=== PATIENT | female | born 1940 | race Caucasian/White ===

== ENCOUNTER 2018-10-15 10:07 | Emergency (ER) | payer MEDICARE, OTHER ==
[~2018-10-15] VITALS: Ht 160 cm; Wt 73.5 kg
[~2018-10-15 10:07] MED LIST: ATIVAN1 MG PO; METOPROLOL SUCC50 MG PO; METOPROLOL TART50 MG PO; PRADAXA150 MG PO; TYLENOL # 31 EA PO; XARELTO20 MG PO; ZEGERID 40 MG1 EACH PO
--- OUTSIDE RECORDS SUMMARY | 2018-10-15 10:10 | XMS REPORT ---
Author Author [facility] Address Unknown Phone Unavailable Care Team Providers Care Associate Director Name Role Phone DEVYN LOPEZ Unavailable Unavailable Payers Payer Name Policy Type Policy Number Effective Date Expiration Date Problems This patient has no known problems. Allergies, Adverse Reactions, Alerts Allergy Name Allergy Type Status Severity Reaction(s) Onset Date Inactive Date Treating Clinician Comments oxytetracycline HCl DA Active MO 2017-07-04 00:00:00 Penicillins DA Active SV 2017-07-04 00:00:00 morphine DA Active SV 2017-07-04 00:00:00 oxytetracycline DA Active MO 2017-07-04 00:00:00 Medications This patient has no known medications. Results Test Description Test Time Test Comments Text Results Atomic Results Result Comments - XR WRIST 3 + V LT 2018-09-03 09:22:00 FAX: Dominick Hardy [phone] [place]: O St: [facility] FAX: Tennille Tanner [phone] Name: REBA DENNISON [facility] : 1940 Age/S: 78/F [address] [facility] Unit #: [id number] Loc: [place] [address] Phys: Tennille Patricio Acct: [id number] Dis Date: Status: REG RCR PHONE #: [phone] Exam Date: 09/03/2018914 FAX #: [phone] Reason: FR EXAMS: CPT CODE: [id number] XR WRIST 3 + V LT 22154 HISTORY: Fracture. COMPARISON: None available. 3 views of the left wrist: Acute traumatic impacted fracture of the distal radius with intra-articular extension and volar displacement of the distal fracture fragment. Soft tissue swelling. Narrowed radiocarpal and intercarpal and carpometacarpal joint spaces. Osteopenia. IMPRESSION: Acute traumatic impacted transverse fracture of the distal radius with intra-articular extension and volar displacement. at 0922 Reported and signed by: Grant Pacheco M.D. CC: Dominick Pacheco DO; Tennille Patricio Technologist: ONOFRE Monsivais) Trnscrd Date/Time/By: 09/03/2018 (921) : By: [email or web address] Orig Print D/T: S: 09/03/2018 (99) PAGE 1 Signed Report - XR WRIST 3 + V LT 2018-07-30 12:24:00 FAX: Dominick Hardy DO [phone] [place]: O St: REG FAX: Payam Lin MD [phone] Name: REBA DENNISON [facility] : 1940 Age/S: 78/F [address] Unit #: [id number] Loc: [place] [address] Phys: Payam Cisneros MD Acct: [id number] Dis Date: Status: REG RCR PHONE #: [phone] Exam Date: 07/30/2018 1159 FAX #: [phone] Reason: FX EXAMS: CPT CODE: [id number] XR WRIST 3 + [place] [address]13 HISTORY: Fracture follow-up. COMPARISON: July 16, 2018. 3 views of the left wrist: Comminuted impacted healing fracture of the distal radius with mild volar displacement. Intra-articular extension. Endosteal healing is noted. Narrowed intercarpal and radiocarpal the carpometacarpal joint spaces. Osteopenia. IMPRESSION: Impacted healing fracture of the distal radius with intra-articular extension. at 7420 Reported and signed by: Grant Pacheco M.D. CC: Dominick Pacheco DO; Payam Cisneros MD Technologist: RT Loi(Stella) Trnscrd Date/Time/By: 07/30/2018 (7935) : By: [email or web address] Orig Print D/T: S: 07/30/2018 (2779) PAGE 1 Signed Report - XR WRIST 3 + V LT 2018-07-16 15:21:00 FAX: Dominick Hardy DO [phone] [place]: O St: REG FAX: Payam Lin MD [phone] Name: REBA DENNISON [facility] : 1940 Age/S: 78/F [place] Unit #: [id number] Loc: [place] [address] Phys: Payam Cisneros MD Acct: [id number] Dis Date: Status: REG RCR PHONE #: [phone] Exam Date: 07/16/2018 1516 FAX #: [phone] Reason: FX EXAMS: CPT CODE: [id number] XR WRIST 3 + V LT 10711 REASON FOR EXAM: FX EXAM ORDER DATE: 07/16/2018 3:03 PM Ordering Hieu: Payam Cisneros MD PROCEDURE: - XR WRIST 3 + V LT COMPARISON: 07/02/2018 FINDINGS: 3 views of the left wrist were obtained. Again noted is the intra-articular comminuted minimally impacted and volar tilting distal left radial fracture. The carpal bones are intact IMPRESSION: Stable appearance of the comminuted intra-articular volarly tilted distal left radial fracture at 1521 Reported and signed by: Rocky Matos M.D. CC: Dominick Pacheco DO; Payam Cisneros MD Technologist: RT JAYESH(R) Trnscrd Date/Time/By: 07/16/2018 (1521) : By: NaelL Orig Print D/T: S: 07/16/2018 (152) PAGE 1 Signed Report - XR WRIST 3 + V LT 2018-07-02 23:04:00 Name: REBA DENNISON [facility] : 1940 Age/S:78 /F [address] [facility] Unit#:[id number] Loc: [place] [address] Phys: Rico Rae Dis Date: PHONE #: [phone] Status: REG ER FAX #: [phone] Exam Date: 07/02/2018 Reason: FELL ON OSH EXAMS: CPT CODE: [id number] XR WRIST 3 + V LT [address]1802 REASON FOR EXAM: FELL ON OSH EXAM ORDER DATE: 07/02/2018 9:25 PM Ordering Hieu: Rico Rae PROCEDURE: - XR WRIST 3 + V LT FINDINGS: 3 views of the left wrist were obtained. There are degenerative The joint spaces are maintained. The radiocarpal joint space is intact IMPRESSION: Intra-articular, minimally impacted distal left radial fracture with 30 degrees volar tilting of the radial carpal joint space at 2304 Reported and signed by: Rocky Matos M.D. CC: Rico Rae Technologist: ELSIE WYLIE RT(R),CT Trnscrpt Data: 07/02/2018 (8294) t.SDR.VTL Orig Print D/T: S: 07/02/2018 (0722) PAGE 1 Signed Report RAD, CHEST, 2 VIEWS 2018-03-07 10:35:00 Reason for Exam:->Syncope FINAL REPORT Chest, PA and lateral. History: Syncope. Comparison: 10/19/2016. Discussion: Left AICD present. The cardiomediastinal silhouette and pulmonary vasculature are within normal limits. The lungs are clear without evidence of consolidation or effusion. There are no acute osseous abnormalities. The soft tissues are unremarkable. IMPRESSION: No acute cardiopulmonary abnormality. Signed: Corie Santamaria MDReport Verified Date/Time: 03/07/2018 10:35:04 Reading Location: [address] Radiology Reading Room Electronically signed by: CORIE SANTAMARIA M.D. on 1 05/08/2017 10:35 AM BASIC METABOLIC PANEL 2018-03-07 10:19:00 SODIUM (BEAKER) (test xfal=711) 142 meq/L 136-145 POTASSIUM (BEAKER) (test oktu=445) 4.1 meq/L 3.5-5.1 CHLORIDE (BEAKER) (test vhww=580) 106 meq/L 98-107 CO2 (BEAKER) (test ofle=399) 31 meq/L 22-29 BLOOD UREA NITROGEN (BEAKER) (test nhan=355) 19 mg/dL 7-21 CREATININE (BEAKER) (test ahtg=384) 0.89 mg/dL 0.57-1.25 GLUCOSE RANDOM (BEAKER) (test xcrg=994) 107 mg/dL 70-105 CALCIUM (BEAKER) (test zhgb=048) 9.5 mg/dL 8.4-10.2 EGFR (BEAKER) (test bugt=2970) mL/min/1.73 sq m INSUFFICIENT CLINICAL DATA TO CALCULATE ESTIMATED GFR. LIPID [id number] 10:16:00* Test Item Value Reference Range Comments TRIGLYCERIDES (BEAKER) (test kuid=616) 88 mg/dL CHOLESTEROL (BEAKER) (test peiu=291) 240 mg/dL HDL CHOLESTEROL (BEAKER) (test akrc=658) 61 mg/dL LDL CHOLESTEROL CALCULATED (BEAKER) (test cnni=926) 161 mg/dL Triglyceride Reference Range: Low Risk <150 Borderline 150-199 High Risk 200-499 Very High Risk >=500Cholesterol Reference Range: Low Risk <200 Borderline 200-239 High Risk >240HDL Cholesterol Reference Range: Low Risk >=60 High Risk <40LDL Cholesterol Reference Range: Optimal <100 Near Optimal 100-129 Borderline 130-159 High 160-189 Very High >=190 HEPATIC FUNCTION [id number] 10:16:00* Test Item Value Reference Range Comments TOTAL PROTEIN (BEAKER) (test vgzi=814) 7.1 gm/dL 6.0-8.3 ALBUMIN (BEAKER) (test acex=5042) 4.1 g/dL 3.5-5.0 BILIRUBIN TOTAL (BEAKER) (test fbpm=362) 0.5 mg/dL 0.2-1.2 BILIRUBIN DIRECT (BEAKER) (test ycfd=028) 0.2 mg/dL 0.1-0.5 ALKALINE PHOSPHATASE (BEAKER) (test mkrz=099) 75 U/L 40-150 AST (SGOT) (BEAKER) (test fkpl=559) 15 U/L 5-34 ALT (SGPT) (BEAKER) (test qvuf=045) 15 U/L 6-55 CBC W/PLT COUNT & AUTO [id number] 10:00:00* Test Item Value Reference Range Comments WHITE BLOOD CELL COUNT (BEAKER) (test wpgt=080) 5.4 K/ L 3.5-10.5 RED BLOOD CELL COUNT (BEAKER) (test yeqm=675) 4.08 M/ L 3.93-5.22 HEMOGLOBIN (BEAKER) (test cgih=088) 12.2 GM/DL 11.2-15.7 HEMATOCRIT (BEAKER) (test ckuc=093) 39.6 % 34.1-44.9 MEAN CORPUSCULAR VOLUME (BEAKER) (test ztjl=872) 97.1 fL 79.4-94.8 MEAN CORPUSCULAR HEMOGLOBIN (BEAKER) (test emzg=286) 29.9 pg 25.6-32.2 MEAN CORPUSCULAR HEMOGLOBIN CONC (BEAKER) (test jrba=099) 30.8 GM/DL 32.2-35.5 RED CELL DISTRIBUTION WIDTH (BEAKER) (test mrcf=321) 14.6 % 11.7-14.4 PLATELET COUNT (BEAKER) (test wmlc=359) 265 K/CU MM 150-450 MEAN PLATELET VOLUME (BEAKER) (test ngrd=607) 9.9 fL 9.4-12.3 NUCLEATED RED BLOOD CELLS (BEAKER) (test jpft=584) 0 /100 WBC 0-0 NEUTROPHILS RELATIVE PERCENT (BEAKER) (test dmxq=410) 57 % LYMPHOCYTES RELATIVE PERCENT (BEAKER) (test fobz=951) 27 % MONOCYTES RELATIVE PERCENT (BEAKER) (test qjme=123) 8 % EOSINOPHILS RELATIVE PERCENT (BEAKER) (test ecft=514) 6 % BASOPHILS RELATIVE PERCENT (BEAKER) (test nirm=033) 1 % NEUTROPHILS ABSOLUTE COUNT (BEAKER) (test qnqm=318) 3.08 K/ L 1.56-6.13 LYMPHOCYTES ABSOLUTE COUNT (BEAKER) (test djaj=331) 1.47 K/ L 1.18-3.74 MONOCYTES ABSOLUTE COUNT (BEAKER) (test bxhz=414) 0.45 K/ L 0.24-0.36 EOSINOPHILS ABSOLUTE COUNT (BEAKER) (test qynr=030) 0.34 K/ L 0.04-0.36 BASOPHILS ABSOLUTE COUNT (BEAKER) (test uzej=713) 0.05 K/ L 0.01-0.08 IMMATURE GRANULOCYTES-RELATIVE PERCENT (BEAKER) (test htxt=5988) 0 % 0-1 COMPREHENSIVE METABOLIC [id number] 12:46:00* Test Item Value Reference Range Comments TOTAL PROTEIN (BEAKER) (test pnku=244) 6.9 gm/dL 6.0-8.3 ALBUMIN (BEAKER) (test ghoy=7616) 4.1 g/dL 3.5-5.0 ALKALINE PHOSPHATASE (BEAKER) (test nwmd=698) 69 U/L 40-150 BILIRUBIN TOTAL (BEAKER) (test odfv=330) 0.5 mg/dL 0.2-1.2 SODIUM (BEAKER) (test ggfs=719) 139 meq/L 136-145 POTASSIUM (BEAKER) (test yofl=270) 4.5 meq/L 3.5-5.1 CHLORIDE (BEAKER) (test vnzu=416) 106 meq/L 98-107 CO2 (BEAKER) (test zaxq=714) 27 meq/L 22-29 BLOOD UREA NITROGEN (BEAKER) (test dupg=142) 18 mg/dL 7-21 CREATININE (BEAKER) (test afic=184) 0.87 mg/dL 0.57-1.25 GLUCOSE RANDOM (BEAKER) (test shfs=411) 101 mg/dL 70-105 CALCIUM (BEAKER) (test toad=322) 9.1 mg/dL 8.4-10.2 AST (SGOT) (BEAKER) (test tkng=992) 17 U/L 5-34 ALT (SGPT) (BEAKER) (test wphl=073) 24 U/L 6-55 EGFR (BEAKER) (test qspg=1473) mL/min/1.73 sq m INSUFFICIENT CLINICAL DATA TO CALCULATE ESTIMATED GFR. LIPID [id number] 12:10:00* Test Item Value Reference Range Comments TRIGLYCERIDES (BEAKER) (test ucwb=256) 95 mg/dL CHOLESTEROL (BEAKER) (test ikmp=743) 174 mg/dL HDL CHOLESTEROL (BEAKER) (test cusb=993) 61 mg/dL LDL CHOLESTEROL CALCULATED (BEAKER) (test cwtc=519) 94 mg/dL Triglyceride Reference Range: Low Risk <150 Borderline 150-199 High Risk 200-499 Very High Risk >=500Cholesterol Reference Range: Low Risk <200 Borderline 200-239 High Risk >240HDL Cholesterol Reference Range: Low Risk >=60 High Risk <40LDL Cholesterol Reference Range: Optimal <100 Near Optimal 100-129 Borderline 130-159 High 160-189 Very High >=190 CBC W/PLT COUNT & AUTO [id number] 11:43:00* Test Item Value Reference Range Comments WHITE BLOOD CELL COUNT (BEAKER) (test dpmr=472) 7.0 K/ L 3.5-10.5 RED BLOOD CELL COUNT (BEAKER) (test eklq=839) 3.92 M/ L 3.93-5.22 HEMOGLOBIN (BEAKER) (test hpqb=814) 12.0 GM/DL 11.2-15.7 HEMATOCRIT (BEAKER) (test zfkv=054) 37.9 % 34.1-44.9 MEAN CORPUSCULAR VOLUME (BEAKER) (test bkcr=959) 96.7 fL 79.4-94.8 MEAN CORPUSCULAR HEMOGLOBIN (BEAKER) (test ubnr=438) 30.6 pg 25.6-32.2 MEAN CORPUSCULAR HEMOGLOBIN CONC (BEAKER) (test koxn=247) 31.7 GM/DL 32.2-35.5 RED CELL DISTRIBUTION WIDTH (BEAKER) (test gtay=602) 14.1 % 11.7-14.4 PLATELET COUNT (BEAKER) (test hgqz=767) 254 K/CU MM 150-450 MEAN PLATELET VOLUME (BEAKER) (test tsik=580) 10.0 fL 9.4-12.3 NUCLEATED RED BLOOD CELLS (BEAKER) (test jtzm=156) 0 /100 WBC 0-0 NEUTROPHILS RELATIVE PERCENT (BEAKER) (test ujux=570) 68 % LYMPHOCYTES RELATIVE PERCENT (BEAKER) (test bumz=079) 23 % MONOCYTES RELATIVE PERCENT (BEAKER) (test zmjq=080) 7 % EOSINOPHILS RELATIVE PERCENT (BEAKER) (test pmhz=467) 1 % BASOPHILS RELATIVE PERCENT (BEAKER) (test vuoo=252) 1 % NEUTROPHILS ABSOLUTE COUNT (BEAKER) (test wzhq=618) 4.75 K/ L 1.56-6.13 LYMPHOCYTES ABSOLUTE COUNT (BEAKER) (test niov=858) 1.57 K/ L 1.18-3.74 MONOCYTES ABSOLUTE COUNT (BEAKER) (test lcfl=212) 0.52 K/ L 0.24-0.36 EOSINOPHILS ABSOLUTE COUNT (BEAKER) (test jzor=753) 0.07 K/ L 0.04-0.36 BASOPHILS ABSOLUTE COUNT (BEAKER) (test xaxh=557) 0.05 K/ L 0.01-0.08 IMMATURE GRANULOCYTES-RELATIVE PERCENT (BEAKER) (test zmxw=0543) 0 % 0-1
--- OUTSIDE RECORDS SUMMARY | 2018-10-15 10:10 | XMS REPORT | Clinical Summary ---
Author Author [facility] Address Unknown Phone Unavailable Care Team Providers Care Back Order Clerk Name Role Phone Dominick Pacheco DO PCP Allergies Comments Active Allergy Reactions Severity Noted Date Pain worsened, severe nausea/vomiting, exacerbated condition Morphine 11/27/2015 Penicillins Rash Low 11/27/2015 Medications End Date Status Medication Sig Dispensed Refills Start Date Active dabigatran (PRADAXA) 150 Take by mouth 0 mg Cap capsule 2 (two) times daily. Active OMEPRAZOLE/SODIUM Take 40 mg by 0 BICARBONATE (ZEGERID mouth daily. ORAL) Active Problems Problem Noted Date Symptomatic bradycardia 11/27/2015 Encounters Care Team Description Date Type Specialty Adi Amaral MD Atrial fibrillation, unspecified type (HCC); Syncope, unspecified syncope type; Paroxysmal ventricular tachycardia (HCC) 03/07/2018 Hospital Encounter Adi Amaral MD Persistent atrial fibrillation (HCC) (Primary Dx); Syncope and collapse; Paroxysmal ventricular tachycardia (HCC) 03/07/2018 Orders Only Lab Adi Amaral MD Atrial fibrillation, unspecified type (HCC) (Primary Dx); Syncope, unspecified syncope type; Paroxysmal ventricular tachycardia (HCC) 03/01/2018 Outside Orders Central Scheduling after 10/14/2017 Social History Date Tobacco Use Types Packs/Day Years Used Never Smoker Alcohol Use Drinks/Week oz/Week Comments No Sex Assigned at Date Recorded Not on file Industry Job Start Date Occupation Not on file Not on file Not on file Travel End Travel History Travel Start No recent travel history available. Last Filed Vital Signs Not on file Plan of Treatment Not on file Implants Device Identifier Shelf Expiration Date Model / Serial / Lot Implanted Type Area Manufactur er 09/22/2017 5076-52 / [id number] / Lead Pacemkr Capsur Novus 52cm Pacemaker [employer]: 5076-52 - [id number] Lead CARD Implanted: Qty: 1 on 11/27/2015 by RHY:Harjinder Tony MD E MGT 09/16/2017 5076-45 / [id number] / Lead Pacemkr Lucinda Novus 45cm Pacemaker [employer]: 5076-45 - [id number] Lead CARD Implanted: Qty: 1 on 11/27/2015 by RHY:Harjinder Tony MD E MGT 04/09/2017 [id number] / [id number] / Pacemaker Ipg Advisa [id number] - Pacemakers [employer]: [id number] CARD Implanted: Qty: 1 on 11/27/2015 by RHY:Harjinder Tony MD E MGT Procedures Comments Procedure Name Priority Date/Time Associated Diagnosis XR CHEST 2 VIEWS Routine 03/07/2018 Atrial fibrillation, 10:06 AM TRANSITION MANAGER unspecified type (HCC) Syncope, unspecified syncope type Paroxysmal ventricular tachycardia (HCC) CBC W/PLT COUNT & AUTO Routine 03/07/2018 Persistent atrial DIFFERENTIAL 9:40 AM TRANSITION MANAGER fibrillation (HCC) Syncope and collapse Paroxysmal ventricular tachycardia (HCC) BASIC METABOLIC PANEL (7) Routine 03/07/2018 Persistent atrial 9:40 AM TRANSITION MANAGER fibrillation (HCC) Syncope and collapse Paroxysmal ventricular tachycardia (HCC) CBC W/PLT COUNT & AUTO Routine 03/07/2018 Persistent atrial DIFFERENTIAL 9:40 AM TRANSITION MANAGER fibrillation (HCC) Syncope and collapse Paroxysmal ventricular tachycardia (HCC) LIPID PANEL Routine 03/07/2018 Persistent atrial 9:40 AM TRANSITION MANAGER fibrillation (HCC) Syncope and collapse Paroxysmal ventricular tachycardia (HCC) HEPATIC FUNCTION PANEL Routine 03/07/2018 Persistent atrial 9:40 AM TRANSITION MANAGER fibrillation (HCC) Syncope and collapse Paroxysmal ventricular tachycardia (HCC) after 10/14/2017 Results * XR Chest 2 Views (03/07/2018 10:06 AM TRANSITION MANAGER) Specimen Narrative Performed At FINAL REPORT [facility] Chest, PA and lateral. History: Syncope. Comparison: 10/19/2016. Discussion:Left AICD present. The cardiomediastinal silhouette and pulmonary vasculature are within normal limits. The lungs are clear without evidence of consolidation or effusion.There are no acute osseous abnormalities. The soft tissues are unremarkable. IMPRESSION: No acute cardiopulmonary abnormality. Signed: Corie Le MD Report Verified Date/Time:03/07/2018 10:35:04 Reading Location: [address] Radiology Reading Room Procedure Note Interface, External Ris In - 03/07/2018 10:37 AM TRANSITION MANAGER FINAL REPORT Chest, PA and lateral. History: Syncope. Comparison: 10/19/2016. Discussion: Left AICD present. The cardiomediastinal silhouette and pulmonary vasculature are within normal limits. The lungs are clear without evidence of consolidation or effusion. There are no acute osseous abnormalities. The soft tissues are unremarkable. IMPRESSION: No acute cardiopulmonary abnormality. Signed: Corie Le MD Report Verified Date/Time: 03/07/2018 10:35:04 Reading Location: [address] Radiology Reading Room Performing Organization Address City/State/Zipcode Phone Number GE RIS * CBC with platelet count + automated diff (03/07/2018 9:40 AM TRANSITION MANAGER) WBC 5.4 3.5 - 10.5 K/L [facility] RBC 4.08 3.93 - 5.22 M/L [facility] Hemoglobin 12.2 11.2 - 15.7 GM/DL [facility] Hematocrit 39.6 34.1 - 44.9 % [facility] MCV 97.1 (H) 79.4 - 94.8 fL [facility] MCH 29.9 25.6 - 32.2 pg [facility] MCHC 30.8 (L) 32.2 - 35.5 GM/DL [facility] RDW 14.6 (H) 11.7 - 14.4 % [facility] Platelets 265 150 - 450 K/CU MM [facility] MPV 9.9 9.4 - 12.3 fL [facility] nRBC 0 0 - 0 /100 WBC [facility] % Neutros 57 % [facility] % Lymphs 27 % [facility] % Monos 8 % [facility] % Eos 6 % [facility] % Baso 1 % [facility] # Neutros 3.08 1.56 - 6.13 K/L [facility] # Lymphs 1.47 1.18 - 3.74 K/L [facility] # Monos 0.45 (H) 0.24 - 0.36 K/L [facility] # Eos 0.34 0.04 - 0.36 K/L [facility] # Baso 0.05 0.01 - 0.08 K/L [facility] Immature 0 0 - 1 % [facility] Granulocytes-[facility] Specimen Blood Performing Organization Address City/State/Zipcode Phone Number [id number] [address] [place] [address] MED[facility]ENTER * Hepatic function panel (03/07/2018 9:40 AM TRANSITION MANAGER) Protein, Total 7.1 6.0 - 8.3 gm/dL [facility] Albumin 4.1 3.5 - 5.0 g/dL [facility] Total Bilirubin 0.5 0.2 - 1.2 mg/dL [facility] Bilirubin, Direct 0.2 0.1 - 0.5 mg/dL [facility] Alkaline Phosphatase 75 40 - 150 U/L [facility] AST 15 5 - 34 U/L [facility] ALT 15 6 - 55 U/L [facility] Specimen Blood Performing Organization Address City/[facility]/Zipcode Phone Number [id number] [address] [place] [address] [facility] * Lipid panel (03/07/2018 9:40 AM TRANSITION MANAGER) Triglycerides 88 mg/dL [facility] Cholesterol 240 mg/dL [facility] HDL 61 mg/dL [facility] LDL Calculated 161 mg/dL [facility] Specimen Blood Narrative Performed At Triglyceride Reference Range: [facility] Low Risk <150 [facility] Peojwlcasp818-467 High Risk 200-499 Very High Risk>=500 Cholesterol Reference Range: Low Risk <200 Veyzbgdimr269-305 High Risk>240 HDL Cholesterol Reference Range: Low Risk >=60 High Risk <40 LDL Cholesterol Reference Range: Optimal<100 Near Fzrluak287-638 Difyyunakv815-541 Iwyc815-170 Very High >=190 Performing Organization Address City/[facility]/Zipcode Phone Number [id number] [address] [place] [address] [facility] * Basic Metabolic Panel (03/07/2018 9:40 AM TRANSITION MANAGER) Sodium 142 136 - 145 meq/L [facility] Potassium 4.1 3.5 - 5.1 meq/L [facility] Chloride 106 98 - 107 meq/L [facility] CO2 31 (H) 22 - 29 meq/L [facility] BUN 19 7 - 21 mg/dL [facility] Creatinine 0.89 0.57 - 1.25 mg/dL [facility] Glucose 107 (H) 70 - 105 mg/dL [facility] Calcium 9.5 8.4 - 10.2 mg/dL [facility] EGFR Comment: INSUFFICIENT CLINICAL mL/min/1.73 sq m [facility] DATA TO CALCULATE ESTIMATED [facility] CENTER GFR. Specimen Blood Performing Organization Address City/State/Zipcode Phone Number [id number] [address] [place] [address] MEDICAL CENTER after 10/14/2017 Insurance Payer Benefit Subscriber ID Type Phone Address Plan / Group MEDICARE MEDICARE A xxxxxxxxxxx Medicare B CIGNA - COMMERCIAL CIGNA xxxxxxxxxxx Comm INDEMNITY Advance Directives For more information, please contact: [facility] [address] [place] [address] Date Inactivated Comments Code Status Date Activated 11/28/2015 2:47 PM Full Code 11/27/2015 8:18 AM This code status was determined by: Patient
--- OUTSIDE RECORDS SUMMARY | 2018-10-15 10:10 | XMS REPORT | Clinical Summary ---
Author Author [facility] Organization [facility] Address Unknown Phone Unavailable Care Team Providers [employer] Name Role Phone Asked, No Pcp PCP Unavailable Allergies Comments Active Allergy Reactions Severity Noted Date Pain worsened, severe nausea/vomiting, exacerbated condition Headache, n/v Morphine Other (See 11/27/2015 Comments) Penicillins Rash Low 04/03/2010 Medications End Date Status Medication Sig Dispensed Refills Start Date Active apixaban (ELIQUIS) 5 mg Take by 0 tablet mouth. Active atenolol (TENORMIN) 25 MG TAKE 1 TABLET 1 tablet BY MOUTH 8 EVERY DAY IN THE MORNING Active sertraline (ZOLOFT) 100 Take 150 mg 1 12/31/201 MG tablet by mouth 8 daily. 06/17/2018 nitrofurantoin, Take 1 8 capsule 0 macrocrystal-monohydrate, capsule (100 9 (MACROBID) 100 MG capsule mg total) by mouth 2 (two) times a day for 4 days. Active Problems Problem Noted Date Arrhythmia 08/07/2016 Overview: Overview: afib, sss, bradycardia Hypertension 08/07/2016 Symptomatic bradycardia 11/27/2015 Encounters Care Team Description Date Type Specialty Elvia Castro MA 06/14/2018 Telephone Urology Irma Randall MD SUI (stress urinary incontinence, female) (Primary Dx) 06/13/2018 Procedure visit Urology Irma Randall MD 03/12/2018 Telephone Urology Irma Randall MD SUI (stress urinary incontinence, female) (Primary Dx) 02/28/2018 Office Visit Urology after 10/14/2017 Social History Date Tobacco Use Types Packs/Day Years Used Never Smoker Alcohol Use Drinks/Week oz/Week Comments No Alcohol Habits Answer Date Recorded How often do you have a drink containing alcohol? Never 06/13/2018 How many drinks containing alcohol do you have on Not asked a typical day when you are drinking? How often do you have six or more drinks on one Not asked occasion? Sex Assigned at Date Recorded Not on file Industry Job Start Date Occupation Not on file Not on file Not on file Travel End Travel History Travel Start No recent travel history available. Last Filed Vital Signs Time Taken Vital Sign Reading 06/13/2018 9:30 AM CDT Blood Pressure 104/69 06/13/2018 9:30 AM CDT Pulse 60 - Temperature - - Respiratory Rate - - Oxygen Saturation - - Inhaled Oxygen - Concentration 06/13/2018 9:30 AM CDT Weight 77.1 kg (170 lb) 06/13/2018 9:30 AM CDT Height 160 cm (5' 3") 06/13/2018 9:30 AM CDT Body Mass Index 30.11 Plan of Treatment Health Maintenance Due Date Last Done Comments SHINGLES VACCINES (#1) 1990 65+ PNEUMOCOCCAL VACCINE 2005 (1 of 2 - PCV13) INFLUENZA VACCINE 10/25/2018 Procedures Comments Procedure Name Priority Date/Time Associated Diagnosis POC URINALYSIS DIPSTICK Routine 06/13/2018 PEDRO (stress urinary 9:14 AM CDT incontinence, female) after 10/14/2017 Results * POC urinalysis dipstick (06/13/2018 9:14 AM CDT) Color urine, Yellow POC Clarity urine, Clear POC Glucose urine, Negative Negative POC Bilirubin Negative Negative urine, POC Ketones urine, Negative Negative POC Specific 1.015 1.005 - 1.030 gravity urine, POC Blood urine, Trace (A) Negative POC pH urine, POC 5.5 5.0, 5.5, 6.0, 6.5, 7.0, 7.5, 8.0, 8.5 Protein urine, Negative Negative POC Urobilinogen <2.0 <2.0 urine, POC Nitrite urine, Negative Negative POC Leukocyte Trace (A) Negative esterase urine, POC Specimen Urine after 10/14/2017 Insurance Type Payer Benefit Subscriber ID Effective Phone Address Plan / Dates Group Medicare MEDICARE MEDICARE xxxxxxxxxxx 2005-P [place], PART A AND resent [place] B Indemnity CIGNA CIGNA xxxxxxxxxxx 2013-P INDEMNITY resent Advance Directives Patient has advance care planning documents on file. For more information, rene clayton contact: Luis Tobias [address] [place] [phone]
[2018-10-15 12:37] LABS: BILIRUBIN,URINE NEGATIVE (NEGATIVE); CLARITY,URINE CLEAR (CLEAR); COLOR,URINE YELLOW (YELLOW); KETONES,URINE NEGATIVE (NEGATIVE); LEUKOCYTE ESTERASE ,URINE NEGATIVE (NEGATIVE); NITRITE,URINE NEGATIVE (NEGATIVE); PROTEIN,URINE DIPSTICK NEGATIVE (NEGATIVE); URINE UROBILINOGEN 0.2 mg/dL (0.2 - 1)
[2018-10-15 12:55] LABS: AMORPHOUS SEDIMENT,URINE FEW (FEW); BACTERIA,URINE MODERATE /HPF; EPITHELIAL CELLS,URINE MODERATE /LPF; RBC,URINE 0-5 /HPF (0-5); WBC,URINE (MAN) 0-5 /HPF (0-5)
--- NOTE | 2018-10-15 13:11 | Diagnostic Imaging Report ---
History: Syncopal episode Comparison studies: CT head 10/28/2015 Technique: Axial images were obtained from the skull base to the vertex. Coronal and sagittal reconstructions obtained from the axial data. Dose modulation, iterative reconstruction, and/or weight based adjustment of the mA/kV was utilized to reduce the radiation dose to as low as reasonably achievable. Findings: Scalp/skull: No abnormalities. No fractures, blastic or lytic lesions. Extra-axial spaces: No masses. No fluid collections. Brain sulci: Appropriate for age. Ventricles: Normal in size and configuration. No hydrocephalus. Parenchyma: Few hypodensities of the periventricular and deep white matter, most commonly seen with minimal chronic microvascular ischemic changes. No masses, hemorrhage, acute or chronic cortical vascular insults. Sellar/suprasellar region: No abnormalities Craniocervical junction: Patent foramen magnum. No Chiari one malformation. IMPRESSION: No acute abnormalities . Signed by: DR Onofre Case M.D. on 10/15/2018 1:08 PM
--- NOTE | 2018-10-15 13:42 | Diagnostic Imaging Report ---
EXAMINATION: CHEST SINGLE (NOT PORTABLE) INDICATION: Syncope, vomiting COMPARISON: None FINDINGS: TUBES and LINES: Left chest pacemaker device with leads terminating in the coronary sinus and right ventricle. LUNGS: Mild biapical pleural parenchymal thickening/scarring. The lungs are well-inflated. No focal consolidation or pulmonary edema. PLEURA: No pleural effusion or pneumothorax. HEART AND MEDIASTINUM: The cardiomediastinal silhouette is normal in size and contour. Atherosclerotic calcifications of the thoracic aorta. BONES AND SOFT TISSUES: No acute fracture or dislocation. UPPER ABDOMEN: No free air under the diaphragm. IMPRESSION: No focal pneumonia or pulmonary edema. Signed by: Denilson Blount MD on 10/15/2018 1:39 PM
[2018-10-15 14:06] LABS: BASOPHILS # (AUTO) 0.1 (0.0-0.1); BASOPHILS % 0.7 % (0.0-1.0); EOSINOPHILS # (AUTO) 0.1 (0.0-0.4); EOSINOPHILS % 0.6 % (0.0-6.0); HEMATOCRIT 40.8 % (34.2-44.1); HEMOGLOBIN 13.1 g/dL (12.0-16.0); LYMPHOCYTES # (AUTO) 1.3 (1.0-3.2); LYMPHOCYTES % 14.9 % (18.0-39.1); MEAN CORPUSCULAR HEMOGLOBIN 30.5 pg (28-32); MEAN CORPUSCULAR HGB CONC 32.1 g/dL (31-35); MEAN CORPUSCULAR VOLUME 95.1 fL (81-99); MONOCYTES # (AUTO) 0.5 (0.2-0.8); MONOCYTES % 5.9 % (4.4-11.3); NEUTROPHILS # (AUTO) 6.5 (2.1-6.9); NEUTROPHILS % 77.8 % (38.7-80.0); PLATELET COUNT 246 x10e3/uL (140-360); RED BLOOD COUNT 4.29 x10e6/uL (3.6-5.1); RED CELL DISTRIBUTION WIDTH 14.6 % (11.7-14.4)
[2018-10-15 14:11] LABS: INR 0.92; PROTHROMBIN TIME 12.8 seconds (11.9-14.5)
[2018-10-15 14:12] LABS: PARTIAL THROMBOPLASTIN TIME 27.5 seconds (23.8-35.5)
[2018-10-15 14:21] LABS: ALBUMIN/GLOBULIN RATIO 1.2 (0.8-2.0); ANION GAP 15.5 mmol/L (8-16); CALCIUM 9.7 mg/dL (8.4-10.2); CREATININE, SERUM 1.02 mg/dL (0.57-1.11); POTASSIUM 4.5 mmol/L (3.5-5.1)
[2018-10-15 14:27] LABS: CREATINE KINASE MB 1.1 ng/mL (0-5.0)
[2018-10-15] MEDS ORDERED: ZIPRASIDONE 20 MG VIAL IM PRN (15:00)
[2018-10-15] MEDS ORDERED: CEFEPIME 1GM/NS 0.9% 50 ML 50 ML IV SCH (15:00)
[2018-10-15] MEDS ORDERED: CEFEPIME HCL 1 GM VIAL IV SCH (15:00)
[2018-10-15] MEDS ORDERED: AZITHROMYCIN 500MG/NS 250 ML 250 ML IV SCH (16:00)
== END 2018-10-15 15:34 | disposition home or self-care (01) ==
LOC: ER 10:07
DX: R55 Syncope and collapse (principal); R51 Headache; R11.0 Nausea; F41.1 Generalized anxiety disorder
CPT/HCPCS: 36415; 70450; 71045; 80053; 81001; 82550; 82553; 84484; 85025; 85610; 85730; 93005; 99284